=== PATIENT | male | born 1950 | race Caucasian/White ===

== ENCOUNTER 2017-03-08 12:58 | Emergency (ER) | payer MEDICARE ==
[~2017-03-08] VITALS: Ht 177.8 cm; Wt 112.5 kg
[~2017-03-08 12:58] MED LIST: ALDACTONE25 MG PO; BRILINTA90 MG PO; BUMETANIDE1 MG PO; COREG12.5 MG PEG; COREG12.5 MG PO; COUMADIN5 MG PO; ENTRESTO PO; FLOMAX0.4 MG PO; GABAPENTIN300 MG PO; LEVOTHYROXINE50 MCG PO; OMEPRAZOLE40 MG PO; SIMVASTATIN20 MG PO; WARFARIN SODIU2.5 MG PO; WARFARIN SODIUM3 MG PO
--- NOTE | 2017-03-08 14:58 | Diagnostic Imaging Report ---
History: Fall, pain Comparison studies:None Technique: Axial images were obtained from the brain and cervical spine. Coronal and sagittal images reconstructed from the axial data. Intravenous contrast: None Findings: Head CT: Scalp/skull: No abnormalities. Extra-axial spaces: No masses. No fluid collections. Brain sulci: Age-appropriate. Ventricles: Age-appropriate. No hydrocephalus. Parenchyma: Subtle hypodensities in the supratentorial white matter are small vessel ischemic changes. No masses, hemorrhage, acute or chronic cortical vascular insults. Sellar/suprasellar region: No abnormalities. Craniocervical junction: Patent foramen magnum. No Chiari one malformation. Incidental findings: Atherosclerotic calcifications in the carotid siphons . Cervical spine CT: Fractures: None. Soft tissues: No gross abnormalities. Atlantoaxial articulation: Degenerative changes without acute abnormality. Alignment: Normal lordosis. No scoliosis. Cervicomedullary junction: No abnormalities. Patent foramen magnum. Vertebrae: No infection or neoplasm. Degenerative changes: Diffuse disc degeneration with loss of intervertebral space from C3 through T1. Uncinate process and facet hypertrophy results in moderate right/severe left foraminal narrowing at C3-4 and severe right foraminal narrowing at C5-6. The canal is grossly patent. Incidental findings: Atherosclerotic calcifications of the carotid bulbs partially visualized. Impression: Head CT: 1. No acute intracranial abnormality. 2. Minimal chronic microvascular ischemic changes of the white matter. Cervical spine CT: 1. No acute abnormalities. Degenerative changes as described above 2. Cannot exclude ligament, spinal cord and or vascular abnormalities on the basis of this examination. Signed by: DR Adam Waters M.D. on 03/08/2017 2:55 PM
== END 2017-03-08 20:50 | disposition short-term general hospital (02) ==
LOC: ER 12:58
DX: R51 Headache (principal)
CPT/HCPCS: 70450; 72125

== ENCOUNTER 2017-05-18 10:43 | Emergency (ER) | payer MEDICARE ==
[~2017-05-18] VITALS: Ht 177.8 cm; Wt 115.7 kg
--- OUTSIDE RECORDS SUMMARY | 2017-05-18 10:46 | XMS REPORT ---
Author Author [facility] Address Unknown Phone Unavailable Care Team Providers Care Gymnastics Instructor Name Role Phone ROBBIN JAMISON Unavailable Unavailable ERIC DALTON Unavailable Unavailable Problems This patient has no known problems. Allergies, Adverse Reactions, Alerts This patient has no known allergies or adverse reactions. Medications This patient has no known medications. Results Test Description Test Time Test Comments Text Results Atomic Results Result Comments TSH 2016-08-23 15:38:00 THYROID STIMULATING HORMONE (BEAKER) (test uvto=920) 3.17 uIU/mL 0.35-4.94 BASIC METABOLIC [id number] 13:09:00* Test Item Value Reference Range Comments SODIUM (BEAKER) (test tkmh=438) 137 meq/L 136-145 POTASSIUM (BEAKER) (test zzuf=728) 5.0 meq/L 3.5-5.1 CHLORIDE (BEAKER) (test uidn=295) 95 meq/L 98-107 CO2 (BEAKER) (test obye=417) 32 meq/L 22-29 BLOOD UREA NITROGEN (BEAKER) (test mkry=544) 49 mg/dL 7-21 CREATININE (BEAKER) (test xhrg=028) 2.66 mg/dL 0.57-1.25 GLUCOSE RANDOM (BEAKER) (test uekx=440) 121 mg/dL 70-105 CALCIUM (BEAKER) (test xufx=992) 9.8 mg/dL 8.4-10.2 EGFR (BEAKER) (test qnlt=6595) 24 mL/min/1.73 sq m ESTIMATED GFR IS NOT ACCURATE CREATININE CLEARANCE IN PREDICTING GLOMERULAR FILTRATION RATE. ESTIMATED GFR IS NOT APPLICABLE FOR DIALYSIS PATIENTS. HEMOGLOBIN [id number] 12:58:00* Test Item Value Reference Range Comments HEMOGLOBIN A1C (BEAKER) (test chgk=225) 6.4 % 4.3-6.1 B-TYPE NATRIURETIC FACTOR (BNP)2016-08-23 12:43:00* Test Item Value Reference Range Comments B-TYPE NATRIURETIC PEPTIDE (BEAKER) (test tgsv=315) 718 pg/mL 0-100 LIPID [id number] 12:40:00* Test Item Value Reference Range Comments TRIGLYCERIDES (BEAKER) (test msrj=761) 181 mg/dL CHOLESTEROL (BEAKER) (test uxvw=095) 182 mg/dL HDL CHOLESTEROL (BEAKER) (test bgjl=902) 42 mg/dL LDL CHOLESTEROL CALCULATED (BEAKER) (test ntio=940) 104 mg/dL Triglyceride Reference Range: Low Risk <150 Borderline 150-199 High Risk 200-499 Very High Risk >=500Cholesterol Reference Range: Low Risk <200 Borderline 200-239 High Risk >240HDL Cholesterol Reference Range: Low Risk >=60 High Risk <40LDL Cholesterol Reference Range: Optimal <100 Near Optimal 100-129 Borderline 130-159 High 160-189 Very High >=190 HEPATIC FUNCTION [id number] 12:40:00* Test Item Value Reference Range Comments TOTAL PROTEIN (BEAKER) (test kwxs=823) 8.5 gm/dL 6.0-8.3 ALBUMIN (BEAKER) (test ibgy=0733) 4.3 g/dL 3.5-5.0 BILIRUBIN TOTAL (BEAKER) (test rxyd=223) 1.1 mg/dL 0.2-1.2 BILIRUBIN DIRECT (BEAKER) (test juna=376) 0.5 mg/dL 0.1-0.5 ALKALINE PHOSPHATASE (BEAKER) (test edes=147) 100 U/L 40-150 AST (SGOT) (BEAKER) (test fyre=192) 31 U/L 5-34 ALT (SGPT) (BEAKER) (test mlhs=388) 34 U/L 6-55 CBC W/PLT COUNT & AUTO [id number] 12:30:00* Test Item Value Reference Range Comments WHITE BLOOD CELL COUNT (BEAKER) (test yhuv=792) 7.9 K/ L 4.0-10.0 RED BLOOD CELL COUNT (BEAKER) (test ugvv=793) 5.86 M/ L 4.20-5.80 HEMOGLOBIN (BEAKER) (test awbn=871) 17.8 GM/DL 13.0-16.8 HEMATOCRIT (BEAKER) (test rify=127) 56.0 % 40.0-50.0 MEAN CORPUSCULAR VOLUME (BEAKER) (test lsxq=579) 95.5 fL 82.0-98.0 MEAN CORPUSCULAR HEMOGLOBIN (BEAKER) (test ihhj=844) 30.4 pg 27.0-33.0 MEAN CORPUSCULAR HEMOGLOBIN CONC (BEAKER) (test ijti=623) 31.8 GM/DL 32.0- 36.0 RED CELL DISTRIBUTION WIDTH (BEAKER) (test grse=494) 13.8 % 10.3-14.2 PLATELET COUNT (BEAKER) (test efoh=270) 148 K/CU MM 150-430 MEAN PLATELET VOLUME (BEAKER) (test arzr=685) 8.1 fL 6.5-10.5 NUCLEATED RED BLOOD CELLS (BEAKER) (test cdja=798) 0 /100 WBC 0-0 NEUTROPHILS RELATIVE PERCENT (BEAKER) (test drgg=989) 71 % LYMPHOCYTES RELATIVE PERCENT (BEAKER) (test kutu=525) 18 % MONOCYTES RELATIVE PERCENT (BEAKER) (test jqog=606) 8 % EOSINOPHILS RELATIVE PERCENT (BEAKER) (test tjrn=740) 3 % BASOPHILS RELATIVE PERCENT (BEAKER) (test rcnh=135) 0 % NEUTROPHILS ABSOLUTE COUNT (BEAKER) (test rakh=293) 5.66 K/ L 1.80-8.00 LYMPHOCYTES ABSOLUTE COUNT (BEAKER) (test lwtr=700) 1.42 K/ L 1.48-4.50 MONOCYTES ABSOLUTE COUNT (BEAKER) (test jbse=900) 0.64 K/ L 0.00-1.30 EOSINOPHILS ABSOLUTE COUNT (BEAKER) (test ofhg=043) 0.21 K/ L 0.00-0.50 BASOPHILS ABSOLUTE COUNT (BEAKER) (test shvv=434) 0.01 K/ L 0.00-0.20 0.00PROTHROMBIN TIME/[id number] 12:30:00* Test Item Value Reference Range Comments PROTIME (BEAKER) (test txbf=829) 20.6 seconds 11.7-14.7 INR (BEAKER) (test vvwk=182) 1.8 <=5.9 RECOMMENDED COUMADIN/WARFARIN INR THERAPY RANGESSTANDARD DOSE: 2.0 - 3.0 Includes: PROPHYLAXIS for venous thrombosis, systemic embolization; TREATMENT for venous thrombosis and/or pulmonary embolus.HIGH RISK: Target INR is 2.5-3.5 for patients with mechanical heart valves.Within 24 hours, if on CoumadinCT BRAIN WO [facility] [address] [address] Patient Name: BRIDGETTE RAMOS MR # : [id number] : 1950 Age/Sex: 67/M Req #: [id number] Adm Physician: Ordered by: PIYUSH VALVERDE BOOKING SUPERVISOR Report #: [id number] Location: ER Room/Bed: Procedure: [id number] CT/CT BRAIN WO Exam Date: 03/08/17 Exam Time: 1418 REPORT STATUS: Signed History: Fall, pain Comparison studies:None Technique: Axial images were obtained from the brain and cervical spine. Coronal and sagittal images reconstructed from the axial data. Intravenous contrast: None Findings: Head CT: Scalp/skull: No abnormalities. Extra-axial spaces: No masses. No fluid collections. Brain sulci: Age-appropriate. Ventricles: Age-appropriate. No hydrocephalus. Parenchyma: Subtle hypodensities in the supratentorial white matter are small vessel ischemic changes. No masses, hemorrhage, acute or chronic cortical vascular insults. Sellar/suprasellar region: No abnormalities. Craniocervical junction: Patent foramen magnum. No Chiari one malformation. Incidental findings: Atherosclerotic calcifications in the carotid siphons . Cervical spine CT: Fractures: None. Soft tissues: No gross abnormalities. Atlantoaxial articulation: Degenerative changes without acute abnormality. Alignment: Normal lordosis. No scoliosis. Cervicomedullary junction: No abnormalities. Patent foramen magnum. Vertebrae: No infection or neoplasm. Degenerative changes: Diffuse disc degeneration with loss of intervertebral space from C3 through T1. Uncinate process and facet hypertrophy results in moderate right/severe left foraminal narrowing at C3-4 and severe right foraminal narrowing at C5-6. The canal is grossly patent. Incidental findings: Atherosclerotic calcifications of the carotid bulbs partially visualized. Impression: Head CT: 1. No acute intracranial abnormality. 2. Minimal chronic microvascular ischemic changes of the white matter. Cervical spine CT: 1. No acute abnormalities. Degenerative changes as described above 2. Cannot exclude ligament, spinal cord and or vascular abnormalities on the basis of this examination. Signed by: DR Adam Waters M.D. on 03/08 2:55 PM Dictated By: ADAM DUMONT MD 145 Transcribed By: GUCCI on 03/08/17 1459 COPY TO: PIYUSH VALVERDE NP CT CERVICAL SPINE WO [address] [place] [address] Patient Name: BRIDGETTE RAMOS MR #: [id number] : 10/1950 Age/Sex: 67/M Req #: [id number] Adm Physician: Ordered by: PIYUSH VALVERDE NP Report #: [id number] Location: ER Room/ Bed: Procedure: [id number] CT/CT CERVICAL SPINE WO Exam Date: 03/08/17 Exam Time: 1418 REPORT STATUS: Signed History: Fall, pain Comparison studies:None Technique: Axial images were obtained from the brain and cervical spine. Coronal and sagittal images reconstructed from the axial data. Intravenous contrast: None Findings: Head CT: Scalp/skull: No abnormalities. Extra- axial spaces: No masses. No fluid collections. Brain sulci: Age- appropriate. Ventricles: Age-appropriate. No hydrocephalus. Parenchyma: Subtle hypodensities in the supratentorial white matter are small vessel ischemic changes. No masses, hemorrhage, acute or chronic cortical vascular insults. Sellar/suprasellar region: No abnormalities. Craniocervical junction: Patent foramen magnum. No Chiari one malformation. Incidental findings: Atherosclerotic calcifications in the carotid siphons . Cervical spine CT: Fractures: None. Soft tissues: No gross abnormalities. Atlantoaxial articulation: Degenerative changes without acute abnormality. Alignment: Normal lordosis. No scoliosis. Cervicomedullary junction: No abnormalities. Patent foramen magnum. Vertebrae: No infection or neoplasm. Degenerative changes: Diffuse disc degeneration with loss of intervertebral space from C3 through T1. Uncinate process and facet hypertrophy results in moderate right/severe left foraminal narrowing at C3-4 and severe right foraminal narrowing at C5-6. The canal is grossly patent. Incidental findings: Atherosclerotic calcifications of the carotid bulbs partially visualized. Impression: Head CT: 1. No acute intracranial abnormality. 2. Minimal chronic microvascular ischemic changes of the white matter. Cervical spine CT: 1. No acute abnormalities. Degenerative changes as described above 2. Cannot exclude ligament, spinal cord and or vascular abnormalities on the basis of this examination. Signed by: DR Adam Waters M.D. on 03/08 2:55 PM Dictated By: ADAM DUMONT MD [id number] Transcribed By: GUCCI on 03/08/17 3089 COPY TO: PIYUSH VALVERDE NP
[2017-05-18 12:18] VITALS: BP 132/78
== END 2017-05-18 12:10 | disposition home or self-care (01) ==
LOC: FSED 10:43
DX: H11.31 Conjunctival hemorrhage, right eye (principal); I48.92 Unspecified atrial flutter; I10 Essential (primary) hypertension
CPT/HCPCS: 99283

== ENCOUNTER 2017-09-06 16:13 | Emergency (ER) | payer MEDICARE ==
[~2017-09-06] VITALS: Ht 177.8 cm; Wt 115.7 kg
[2017-09-06] MEDS ORDERED: PLAVIX75 MG PO (16:37)
[2017-09-06] MEDS ORDERED: POTASSIUM CHLO20 ME1 (16:38)
== END 2017-09-06 17:39 | disposition home or self-care (01) ==
LOC: FSED 16:13
DX: S61.011A Laceration without foreign body of right thumb without damage to nail, initial encounter (principal); W45.8XXA Other foreign body or object entering through skin, initial encounter; Y92.000 Kitchen of unspecified non-institutional (private) residence as the place of occurrence of the external cause; I51.9 Heart disease, unspecified; I50.9 Heart failure, unspecified; I48.91 Unspecified atrial fibrillation; Z95.5 Presence of coronary angioplasty implant and graft
CPT/HCPCS: 99284

== ENCOUNTER 2017-09-06 18:43 | Emergency (ER) | payer MEDICARE ==
[~2017-09-06] VITALS: Ht 177.8 cm; Wt 115.7 kg
[~2017-09-06 18:43] MED LIST changes: +PLAVIX75 MG PO; +POTASSIUM CHLO20 ME1
== END 2017-09-06 21:14 | disposition home or self-care (01) ==
LOC: FSED 18:43
DX: S61.011A Laceration without foreign body of right thumb without damage to nail, initial encounter (principal); W26.0XXA Contact with knife, initial encounter; Y92.008 Other place in unspecified non-institutional (private) residence as the place of occurrence of the external cause
CPT/HCPCS: 85025; 85610; 99283

== ENCOUNTER 2019-04-04 10:30 | Emergency (ER) | payer OTHER, MEDICARE ==
[~2019-04-04] VITALS: Ht 177.8 cm; Wt 130.2 kg
--- OUTSIDE RECORDS SUMMARY | 2019-04-04 10:36 | XMS REPORT | Summary of Care ---
Author Author [facility] Organization [facility] Address Unknown Phone Unavailable Care Team Providers Care Cloth Coverer Name Role Phone Corie Sanchezpatient - 33 Fausto Eli MD PCP Reason for Referral * Radiology Services (Routine) Referred By Contact Referred To Contact Status Reason Specialty Diagnoses / Procedures Azeem Torrez DPM [address] [place] [id number] [facility] [address] [phone] Pending Radiology Diagnoses PAD (peripheral artery disease) (HCCode) P rocedures US ARTERIAL LEGS BILATERAL Reason for Visit * Reason Comments Follow Up Nail Problem Callouses Peripheral Neuropathy Varicose Veins Encounter Details Care Team Description Date Type Department Azeem Torrez DPM [address] [address] Follow Up ; Nail Problem; Callouses; Peripheral Neuropathy; Varicose Veins 12/18/2018 Office Visit [facility] Vascular Surgery [address] [place] [phone] Allergies Comments Active Allergy Reactions Severity Noted Date blisters Adhesive Tape High 08/24/2014 documented as of this encounter (statuses as of 12/18/2018) Medications End Date Status Medication Sig Dispensed Refills Start Date Active bumetanide (BUMEX) 2 MG Take 1 Tab by 180 Tab 3 tablet mouth two 7 times daily. Active warfarin (COUMADIN) 5 MG Take 5MG 30 Tab 11 tabletIndications: Sunday, 8 Paroxysmal atrial Sunday, fibrillation (HCCode) Sunday and 2.5MG Sunday, , Sunday and Sunday. 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 8 Paroxysmal atrial fibrillation (HCCode), Acute systolic congestive heart failure (HCCode), Glucose intolerance (impaired glucose tolerance), Arteriosclerosis of coronary artery Active spironolactone Take 1 Tab by 30 Tab 11 (ALDACTONE) 25 MG tablet mouth daily. 8 Active levothyroxine (SYNTHROID) TAKE ONE 30 Tab 0 25 MCG tablet TABLET BY 8 MOUTH DAILY Active clopidogrel (PLAVIX) 75 TAKE ONE 78 Tab 10 MG tablet TABLET BY 8 MOUTH DAILY Active Iron Polysacch Take 1 Cap by 30 Each Cxfyu-T33-GI 150-0.025-1 mouth daily. 9 MG CAPSIndications: Macrocytic anemia, B12 deficiency Active Cyanocobalamin [address] 1 Tab 30 Each SUBLIndications: under the 9 Macrocytic anemia, tongue daily. Melena, Gastrointestinal hemorrhage, unspecified gastrointestinal hemorrhage type, Iron deficiency anemia, unspecified iron deficiency anemia type Active omeprazole (PRILOSEC) 40 Take 1 Cap by 30 Cap MG capsuleIndications: mouth daily. 9 Macrocytic anemia, Melena, Gastrointestinal hemorrhage, unspecified gastrointestinal hemorrhage type, Iron deficiency anemia, unspecified iron deficiency anemia type, B12 deficiency, Gastroesophageal reflux disease, esophagitis presence not specified documented as of this encounter (statuses as of 12/18/2018) Active Problems Problem Noted Date Fe deficiency anemia 05/31/2018 GI bleeding 05/31/2018 CKD (chronic kidney disease) stage 2, GFR 60-89 ml/min 08/17/2017 Chronic combined systolic and diastolic CHF (congestive heart failure) 08/14/2017 ([facility] Obesity 12/29/2015 [facility] 09/30/2015 Glucose intolerance (impaired glucose tolerance) 09/24/2014 Automatic implantable cardiac defibrillator in situ 08/04/2014 Paroxysmal [facility] 05/08/2014 Last Assessment & Plan: Hypothyroid 05/08/2014 Arteriosclerosis of coronary artery 05/04/2014 NSTEMI (non-ST elevated myocardial infarction) [facility] 05/01/2014 COURTNEY (obstructive sleep apnea) 05/01/2014 Last Assessment & Plan: Download reviewed and discussed with patient Excellent use and control of obstructive events Patient appreciates and acknowledges the benefit form CPAP on sleep quality and daytime function Pt commended on use and encouraged to continue Setting change: none Obesity (BMI 35.0-39.9 without comorbidity) 05/01/2014 Last Assessment & Plan: Counseled on wt loss with healthy diet and exercise 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 Acute non-ST elevation myocardial infarction ([facility]STEMI) [facility] 04/24/2014 HLD (hyperlipidemia) 12/26/2007 BP (high blood pressure) 12/26/2007 documented as of this encounter (statuses as of 12/18/2018) Immunizations Name Administration Dates Next Due Influenza (whole) 02/02/2015 Pneumococcal 13-valent 07/23/2016 Conjugate Vaccine Pneumococcal Conjugate 05/08/2014 Tdap 08/23/2016, 11/14/2006 documented as of this encounter Social History Date Tobacco Use Types Packs/Day Years Used Never Smoker Smokeless Tobacco: Never Used Drinks/Week oz/Week Comments Alcohol Use 1 Standard drinks or equivalent 0.6 No Sex Assigned at Date Recorded Not on file Industry Job Start Date Occupation Not on file Not on file Not on file Travel End Travel History Travel Start No recent travel history available. documented as of this encounter Last Filed Vital Signs Reading Time Taken Comments Vital Sign - - Blood Pressure - - Pulse - - Temperature - - Respiratory Rate - - Oxygen Saturation - - Inhaled Oxygen Concentration 125.6 kg (277 lb) 12/18/2018 9:49 AM CDT Weight 177.8 cm (5' 10") 12/18/2018 9:49 AM CDT Height 39.75 12/18/2018 9:49 AM CDT Body Mass Index documented in this encounter Progress Notes * Azeem Torrez, MALCOLMM - 12/18/2018 9:00 AM CDT Lisa [place] III is a 68 y.o. male here today for painful peripheral neuro austyn, bilateral, painful severely incurvated inflamed onychomycotic nails 1-10, bilateral,a nd hyperkeratosis distal 3rd digit, left, and medial hallux, right, in need of debridement. He is a new patient , refrred by Dr. Ferro, for LVAD September 2017. He has not had an YU or doppler performed. He has peripheral neuritis,and neur opathy, bilateral Also has venous insufficiency and venous stasis. Level of pain? 3-4 Is the pain getting worse? Yes Is the pain more consistent? Yes Does it hurt in shoes? Yes Have you altered your shoes?Yes Does it hurt with exercise? Yes Does it hurt when barefoot? Yes Previous treatment? No Past Medical History: Diagnosis Date Atrial fibrillation (HCCode) [facility] 05/01/2014 CKD (chronic kidney disease) stage 2, GFR 60-89 ml/min 08/17/2017 Coronary heart disease Hypothyroid NSTEMI (non-ST elevated myocardial infarction) (HCCode) 05/01/2014 COURTNEY (obstructive sleep apnea) 05/01/2014 Past Surgical History: Procedure Laterality Date HX PACEMAKER INSERTION HX PERCUTANEOUS INTERVENTION HX TOTAL KNEE REPLACEMENT Family History Problem Relation Name Age of Onset Unremarkable Other Liver Disease Father Social History Tobacco Use Smoking status: Never Smoker Smokeless tobacco: Never Used Substance Use Topics Alcohol use: No Alcohol/week: 0.6 oz Types: 1 Standard drinks or equivalent per week Drug use: No Allergies Allergen Reactions Adhesive Tape blisters Current Medications bumetanide (BUMEX) 2 MG tablet Take 1 Tab by mouth two times daily. carvedilol (COREG) 12.5 MG tablet TAKE ONE TABLET BY MOUTH TWICE A DAY clopidogrel (PLAVIX) 75 MG tablet TAKE ONE TABLET BY MOUTH DAILY Cyanocobalamin [address] 1 Tab under the tongue daily. Iron Polysacch Gawvq-O96-GI 150-0.025-1 MG CAPS Take 1 Cap by mouth daily. levothyroxine (SYNTHROID) 25 MCG tablet TAKE ONE TABLET BY MOUTH DAILY omeprazole (PRILOSEC) 40 MG capsule Take 1 Cap by mouth daily. spironolactone (ALDACTONE) 25 MG tablet Take 1 Tab by mouth daily. Tamsulosin HCl 0.4 MG CAPS TAKE ONE CAPSULE BY MOUTH DAILY valsartan (DIOVAN) 80 MG tablet Take 1 Tab by mouth daily. warfarin (COUMADIN) 5 MG tablet Take 5MG Sunday, Sunday, Sunday and 2.5MG Sunday, , Sunday and Sunday. ROS: Gen Denies fever, chills Gastro Denies nausea, diarrhea Uro Denies Frequency and dysuria Neuro Admits burning, tingling, numbness, shooting pains neuritis, bilateral Vascular Admits coldness, color changes to skin, venous stasis Skin Denies nail changes, blisters, redness, peeling Psych Denies anxiety, sleep disturbance and depression Physical Exam: Ht 5' 10" (1.778 m) | Wt 277 lb (125.6 kg) | BMI 39.75 kg/m General: No Acute distress, well-developed, well-noursihed. HEENT: Atraumatic, Normosephalic. Lungs: Clear breath sounds bilaterally Cardio: Regular Rate & Rhythm. No rub clicks or gallups. Adb: sofr, non-tender, non-distended. Bowel sounds present in all 4 quads. Upper Ext. No cyanosis or clubbing noted. Lower Ext: Derm: No open lessions or macerations Vasc: D.P.pulses Right: absent Left: absent P.T.pulses Right: absent Left: absent Neuro: Protective threshhold intact bilateral. CFT < 3 sec bilateral. Sharp/Dull sensation: Is not intact Vibratory: is not intact. Monofilament Wire: is not intact. Babinski: is not intact. Mus/Ske: Muscle strength 5/5 bilateral. Range of motion within normal limit s. Psych: Mood normal, affect normal, concentration normal Assessment: PAD painful peripheral neuropathy, bilateral, painful severely incurvated inflamed onychomycotic nails 1-10, bilateral, hyperkeratosis distal 3rd digit, left, and medial hallux, right, in need of debr idement. LVAD September 2017. peripheral neuritis,and neuropathy, bilateral Plan: Sharp debridement of hyperkeratosis distal 3rd digit, left, and medial erik lux, right, Order YU arterial doppler Follow up for nail care and for debridement of lesions Findings discussed with the patient and all questions were answered. Azeem Torrez DPM documented in this encounter Plan of Treatment Care Team Description Date Type Specialty 03/21/2019 Ancillary Vascular Surgery Procedure Azeem Torrez DPM [address] [address] [phone] 03/21/2019 Office Visit Vascular Surgery Order Schedule Name Type Priority Associated Diagnoses 1 Occurrences starting 12/18/2018 until 12/19/2019 US ARTERIAL LEGS Imaging Routine PAD (peripheral artery BILATERAL disease) (HCCode) Ordered: 12/18/2018 NH TRIM BENIGN NH Charge Routine PAD (peripheral artery HYPERKERATOTIC SKIN disease) (HCCode) LESION,2-4 Hyperkeratosis of skin Hyperkeratosis of sole Ingrown left greater toenail Ingrown right greater toenail Pain around toenail, left foot Pain around toenail, right foot Peripheral neuropathy due to inflammation Venous stasis dermatitis of both lower extremities Health Maintenance Due Date Last Done Comments MEDICARE AWV 1950 ANNUAL DIABETIC FOOT EXAM 1967 ANNUAL DIABETIC 1967 RETINOPATHY SCREENING BMI FOLLOW UP PLAN 1967 FALL SCREEN 2014 PNEUMOVAX >=65 (PPSV23) 2014 FLU VACCINE > 6 MONTHS 09/26/2018 11/30/2016 (Declined), 11/23/2016 (Declined), 02/02/2015 TETANUS SHOT (ADULT) 08/23/2026 08/23/2016, 11/14/2006 COLON CANCER SCREENIN07/02/2028 07/02/2018, 07/02/2018 COLONOSCOPY HEPATITIS C SCREENING Completed 10/28/2015 PREVNAR >=65 (PCV13) Completed 07/23/2016, 05/08/2014 documented as of this encounter Results Not on filedocumented in this encounter Visit Diagnoses Diagnosis PAD (peripheral artery disease) (HCCode) - Primary Unspecified disorders of arteries and arterioles Hyperkeratosis of skin Acquired keratoderma Hyperkeratosis of sole Acquired keratoderma Ingrown left greater toenail Ingrowing nail Ingrown right greater toenail Ingrowing nail Pain around toenail, left foot Pain around toenail, right foot Peripheral neuropathy due to inflammation Venous stasis dermatitis of both lower extremities documented in this encounter Insurance Type Payer Benefit Subscriber ID Effective Phone Address Plan / Dates Group Medicare MEDICARE MEDICARE xxxxxxxxxxx 2014-P [id number] [place] [address] Medicare [employer] AARP xxxxxxxxxxx 2015-P [address] MEDICARE resent [id number] [facility] [place] [address] documented as of this encounter
[2019-04-04] MEDS ORDERED: HYDRALAZINE HCL10 MG PO (11:27)
[2019-04-04] MEDS ORDERED: AMLODIPINE BESYL5 MG PO (11:27)
[2019-04-04] MEDS ORDERED: PRAVASTATIN SOD40 MG (11:27)
[2019-04-04] MEDS ORDERED: METOPROLOL SUCC25 MG (11:27)
[2019-04-04] MEDS ORDERED: HYDROCHLOROTHIA25 MG (11:27)
[2019-04-04] MEDS ORDERED: ASPIRIN81 MG (11:27)
--- NOTE | 2019-04-04 12:31 | Diagnostic Imaging Report ---
Right hand, 3 views. Right wrist, 3 views. History: Fall, wrist pain. Findings: Small linear hyperdensities are present in the soft tissues lateral to the base of the third proximal phalanx. There is mild soft tissue swelling at the wrist. Bone mineralization is normal. There is deformity and irregularity of the medial aspect of the distal right radius without visible fracture line, with adjacent radiocarpal joint space narrowing and subchondral sclerosis. Remaining bones are unremarkable. There are no lytic or sclerotic lesions. The joint spaces are within normal limits. IMPRESSION: 1. Small linear foreign bodies in the soft tissues as measured above. 2. Deformity of the distal right radius with adjacent radiocarpal osteoarthritis is suggestive of old trauma. No visible acute or displaced fracture. Signed by: Jose Lowery on 04/04/2019 12:28 PM
== END 2019-04-04 13:02 | disposition home or self-care (01) ==
LOC: FSED 10:30
DX: S60.211A Contusion of right wrist, initial encounter (principal); S60.221A Contusion of right hand, initial encounter; W01.0XXA Fall on same level from slipping, tripping and stumbling without subsequent striking against object, initial encounter; Y93.01 Activity, walking, marching and hiking
CPT/HCPCS: 99284

== ENCOUNTER 2019-08-16 10:59 | Emergency (ER) | payer MEDICARE ==
[~2019-08-16] VITALS: Ht 177.8 cm; Wt 130.2 kg
[~2019-08-16 10:59] MED LIST changes: +AMLODIPINE BESYL5 MG PO; +ASPIRIN81 MG; +HYDRALAZINE HCL10 MG PO; +HYDROCHLOROTHIA25 MG; +METOPROLOL SUCC25 MG; +PRAVASTATIN SOD40 MG
--- NOTE | 2019-08-16 11:41 | Emergency Department Note ---
History of Present Illnes History of Present Illness Chief Complaint: Extremity Trauma/Pain History of Present Illness This is a 69 year old male . Historian: Patient Arrival Mode: Car Manager Finance Required: No Onset (how long ago): day(s) (2 DAYS) Location: RIGHT ELBOW Quality: NO PAIN JUST SWELLING NO WARMTH OR REDNESS Radiation: Denies non-radiation, Denies back, Denies neck, Denies extremity, Denies abdomen, Denies periumbilical, Denies flank, Denies proximal, Denies distal, Denies other Onset quality: gradual Duration (how long): day(s) (2 DAYS) Progression: other (NO PAIN ) Relieving factors: none Exacerbating factors: none Associated symptoms: Denies denies other symptoms, Denies confusion, Denies chest pain, Denies cough, Denies diaphoresis, Denies fever/chills, Denies headaches, Denies loss of appetite, Denies malaise, Denies nausea/vomiting, Denies rash, Denies seizure, Denies shortness of breath, Denies syncope, Denies weakness, Denies other Treatments prior to arrival: none Past Medical/Family History Physician Review I have reviewed the patient's past medical and family history. Any updates have been documented here. Past Medical History Recent Fever: No Clinical Suspicion of Infectio: No New/Unexplained Change in Ment: No Past Medical History: Hypertension, CHF, CVA, CAD Other Medical History: LVAD device Past Surgical History: Knee Replacement Other Surgery: LVAD device 2 cardiac stents Social History Smoking Cessation: Never Smoker Counseling Performed: No Alcohol Use: None Any Illegal Drug Use: No TB Exposure/Symptoms: No Physically hurt or threatened: No Other Last Tetanus: 3-4 yrs Any Pre-Existing Lines (PICC,: No Is patient up to date on immun: Yes Last Flu: 2019 Last Pneumovax: 2019 Review of Systems Review of Systems Constitutional: Denies no symptoms, Denies as per HPI, Denies chills, Denies diaphoresis, Denies fever, Denies malaise, Denies weakness, Denies other EENTM: Denies no symptoms, Denies as per HPI, Denies eye pain, Denies blurred vision, Denies tearing, Denies double vision, Denies ear pain, Denies ear discharge, Denies nose pain, Denies nose congestion, Denies throat pain, Denies throat swelling, Denies mouth pain, Denies mouth swelling, Denies other Cardiovascular: Denies no symptoms, Denies as per HPI, Denies chest pain, Denies edema, Denies palpitations, Denies syncope, Denies other Respiratory: Denies no symptoms, Denies as per HPI, Denies change in phlegm color, Denies chest congestion, Denies cough, Denies hemoptysis, Denies excessive phlegm production, Denies pain on inspiration, Denies pain with cough, Denies dyspnea, Denies dyspnea on exertion, Denies snoring, Denies stridor, Denies wheezing, Denies other Gastrointestinal: Denies no symptoms, Denies as per HPI, Denies abdominal pain, Denies constipation, Denies diarrhea, Denies nausea, Denies vomiting, Denies other Genitourinary: Denies no symptoms, Denies as per HPI, Denies discharge, Denies dysuria, Denies frequency, Denies hematuria, Denies pain, Denies other Musculoskeletal: Denies no symptoms, Denies as per HPI, Denies back pain, Denies gout, Denies joint pain, Denies joint swelling, Denies muscle pain, Denies muscle stiffness, Denies neck pain, Denies other Integumentary: Denies no symptoms, Denies as per HPI, Denies change in color, Denies change in hair/nails, Denies dryness, Denies lesions, Denies lumps, Denies rash, Denies poor turgor, Denies ecchymosis, Denies other Neurological: Denies no symptoms, Denies as per HPI, Denies headache, Denies numbness, Denies paresthesia, Denies pre-existing deficit, Denies seizure, Denies tingling, Denies tremors, Denies weakness, Denies other Psychological: Denies no symptoms, Denies as per HPI, Denies anxiety, Denies depressed, Denies emotional problems, Denies other Endocrine: Denies no symptoms, Denies as per HPI, Denies excessive sweating, Denies flushing, Denies intolerance to cold, Denies intolerance to heat, Denies increased hunger, Denies increased thirst, Denies increased urination, Denies unexplained weight gain, Denies unexplained weight loss, Denies other Hematological/Lymphatic: Denies no symptoms, Denies as per HPI, Denies anemia, Denies blood clots, Denies easy bleeding, Denies easy bruising, Denies swollen glands, Denies other Physical Exam Related Data Allergies: Coded Allergies: No Known Allergies (Unverified , 12/28/15) Triage Vital Signs Vital Signs Date Time Temp Pulse Resp B/P (MAP) Pulse Ox O2 Delivery O2 Flow Rate FiO2 08/16/19 11:25 98.1 90 18 113/80 98 Vital signs reviewed: Yes Physical Exam CONSTITUTIONAL Constitutional: Present well-developed HENT HENT: Present normocephalic EYES Eyes: Reports conjunctivae normal NECK Neck: Present supple PULMONARY Pulmonary: Present effort normal, Present breath sounds normal CARDIOVASCULAR Cardiovascular: Present other (LVAD ) GASTROINTESTINAL Abdominal: Present soft GENITOURINARY Genitourinary: Present exam deferred SKIN Skin: Present warm MUSCULOSKELETAL Musculoskeletal: Present ROM normal (RIGHT ELBOW WITH OLECRANON BURSA SWELLING, NO WARMTH NO PAIN NO ERYTHEMA) NEUROLOGICAL Neurological: Present alert, Present oriented x 3, Present no gross motor or sensory deficits, Present sensory deficit PSYCHOLOGICAL Psychological: Present mood/affect normal Assessment & Plan Medical Decision Making MDM BURSITIS, CELLULITIS, INFLAMMATORY, GOUT, PSEUDOGOUT Reassessment Reassessment SPOKE WITH PATIENT RISKS VS BENEFITS OF ASPIRATION SINCE PATIENT IS ON COUMADIN AND IS AN LVAD PATIENT. PT HAS HX OF GOUT Assessment & Plan Final Impression: (1) Olecranon bursitis Depart Disposition: HOME, SELF-CARE Last Vital Signs Date Time Temp Pulse Resp B/P (MAP) Pulse Ox O2 Delivery O2 Flow Rate FiO2 08/16/19 11:25 98.1 90 18 113/80 98 Home Meds Reported Medications Pravastatin Sodium (PRAVASTATIN SODIUM) 40 Mg Tablet, DAILY 04/04/19 Metoprolol Succinate (METOPROLOL SUCCINATE) 25 Mg Tab.er.24h, DAILY 04/04/19 Hydrochlorothiazide (HYDROCHLOROTHIAZIDE) 25 Mg Tablet, 25 MG DAILY, #30 TAB 04/04/19 Hydralazine Hcl (HYDRALAZINE HCL) 10 Mg Tablet, 100 MG PO TID, #30 TAB 04/04/19 Aspirin (ASPIRIN) 81 Mg Tab.chew 04/04/19 Amlodipine Besylate (AMLODIPINE BESYLATE) 5 Mg Tablet, 5 MG PO DAILY, #30 TAB 04/04/19 Potassium Chloride (POTASSIUM CHLORIDE) 20 Meq Tab.er.prt 09/06/17 Spironolactone (ALDACTONE) 25 Mg Tablet, 50 MG PO BID 08/04/16 Warfarin Sodium (COUMADIN) 5 Mg Tablet, 4.5 MG PO 1700, #7 TAB 07/30/16 Bumetanide (BUMETANIDE) 1 Mg Tablet, 2 MG PO DAILY, #30 TAB 07/30/16 Levothyroxine Sodium (LEVOTHYROXINE SODIUM) 50 Mcg Tablet, 25 MCG PO DAILY, #30 TAB 07/30/16 Tamsulosin Hcl* (FLOMAX*) 0.4 Mg Cap, 0.4 MG PO DAILY, #30 CAP 07/30/16 HERNÁN PACE MD Aug 16, 2019 11:41
== END 2019-08-16 11:37 | disposition home or self-care (01) ==
LOC: FSED 10:59
DX: M25.421 Effusion, right elbow (principal); M70.21 Olecranon bursitis, right elbow; I10 Essential (primary) hypertension; I25.10 Atherosclerotic heart disease of native coronary artery without angina pectoris; I50.9 Heart failure, unspecified; Z86.73 Personal history of transient ischemic attack (TIA), and cerebral infarction without residual deficits
CPT/HCPCS: 99283

== ENCOUNTER 2021-02-07 10:47 | Emergency (ER) | payer MEDICARE ==
[~2021-02-07] VITALS: Ht 177.8 cm; Wt 132.3 kg
[2021-02-07] MEDS ORDERED: MAGOX 400400 MG PO (11:28)
[2021-02-07] MEDS ORDERED: CRESTOR10 MG PO (11:28)
[2021-02-07] MEDS ORDERED: AMIODARONE HCL200 MG PO (11:28)
[2021-02-07] MEDS ORDERED: PLAVIX75 MG PO (11:28)
[2021-02-07] MEDS ORDERED: PROPRANOLOL HCL40 MG PO (11:28)
[2021-02-07] MEDS ORDERED: NEURONTIN300 MG PO (11:28)
[2021-02-07] MEDS ORDERED: FUROSEMIDE INJ 10 MG/ML 4 ML VIAL IV ONE (12:00)
[2021-02-07] MEDS ORDERED: SODIUM CHLORIDE 0.9% 50ML 50 ML ONE (12:12)
[2021-02-07] MEDS ORDERED: IOPAMIDOL 370 MG/ML 200 ML INFUS..BTL INJ ONE (12:12)
[2021-02-07] MEDS ORDERED: CEFDINIR300 MG PO (13:35)
== END 2021-02-07 13:50 | disposition home or self-care (01) ==
LOC: FSED 11:19
DX: R06.02 Shortness of breath (principal); J20.9 Acute bronchitis, unspecified; I50.9 Heart failure, unspecified; I10 Essential (primary) hypertension; E78.5 Hyperlipidemia, unspecified; I51.7 Cardiomegaly; E66.01 Morbid (severe) obesity due to excess calories; R94.31 Abnormal electrocardiogram [ECG] [EKG]; Z86.79 Personal history of other diseases of the circulatory system; Z86.73 Personal history of transient ischemic attack (TIA), and cerebral infarction without residual deficits
CPT/HCPCS: 71260; 80048; 80076; 81003; 82553; 83880; 84484; 85025; 85379; 93005; 96374; 99284; J1940; Q9967

== ENCOUNTER 2022-07-30 15:34 | Emergency (ER) | payer MEDICARE ==
[~2022-07-30] VITALS: Ht 177.8 cm; Wt 133.8 kg
[~2022-07-30 15:34] MED LIST changes: +AMIODARONE HCL200 MG PO; +CEFDINIR300 MG PO; +CRESTOR10 MG PO; +MAGOX 400400 MG PO; +NEURONTIN300 MG PO; +PROPRANOLOL HCL40 MG PO
[2022-07-30 15:50] VITALS: O2SAT 96
== END 2022-07-30 16:57 | disposition home or self-care (01) ==
LOC: FSED 16:05
DX: S80.822A Blister (nonthermal), left lower leg, initial encounter (principal); I10 Essential (primary) hypertension; I50.9 Heart failure, unspecified; I25.10 Atherosclerotic heart disease of native coronary artery without angina pectoris; Z79.01 Long term (current) use of anticoagulants; Z86.73 Personal history of transient ischemic attack (TIA), and cerebral infarction without residual deficits; Z95.5 Presence of coronary angioplasty implant and graft
CPT/HCPCS: 99282